=== PATIENT | male | born 1955 | race Asian ===

== ENCOUNTER 2019-11-27 04:57 | Inpatient (IN) | payer OTHER ==
[~2019-11-27] VITALS: Ht 172.7 cm; Wt 62.1 kg
[2019-11-27] VITALS (14 sets, daily range): BP systolic 106–160; BP diastolic 69–109
[2019-11-27 05:42] LABS: BASOPHIL % 0.3 % (0-2); PLATELET COUNT 207 x10^3mcL (130-400)
[2019-11-27 05:43] LABS: RED CELL DISTRIBUTION WIDTH 14.7 % (11.5-14.5)
[2019-11-27 06:01] LABS: CHLORIDE SERUM 101 mmol/L (98-107); CREATININE SERUM 1.5 mg/dL (0.7-1.3); GFR1 50 mL/min; GLUCOSE SERUM 362 mg/dL (74-106); POTASSIUM SERUM 3.9 mmol/L (3.5-5.1); SODIUM SERUM 139 mmol/L (136-145)
[2019-11-27 06:06] LABS: ALBUMIN 3.5 g/dL (3.4-5.0); ALKALINE PHOSPHATASE 135 U/L (46-116); ALT/SGPT 53 U/L (16-63); AST/SGOT 103 U/L (15-37); BILIRUBIN TOTAL 0.39 mg/dL (0.20-1.00); C REACTIVE PROTEIN 0.5 mg/dL (<=0.9); LACTIC DEHYDROGENASE (LDH) 403 U/L (100-190); TOTAL PROTEIN, SERUM 7.3 g/dL (6.4-8.2)
[2019-11-27 12:51] LABS: UA SPECIFIC GRAVITY >=1.030 (1.005-1.035); microscopic required? YES; urine erythrocyte 3+ (NEGATIVE)
[2019-11-28] VITALS (16 sets, daily range): BP systolic 112–139; BP diastolic 74–94
[2019-11-28 05:37] LABS: BASOPHIL % 0.1 % (0-2); PLATELET COUNT 172 x10^3mcL (130-400); RED CELL DISTRIBUTION WIDTH 14.6 % (11.5-14.5)
[2019-11-28 05:57] LABS: CALCIUM 8.8 mg/dL (8.5-10.1); CARBON DIOXIDE 31.6 mmol/L (21-32); CHLORIDE SERUM 102 mmol/L (98-107); CREATININE SERUM 1.2 mg/dL (0.7-1.3); GFR1 > 60 mL/min; GLUCOSE SERUM 134 mg/dL (74-106); MAGNESIUM 2.2 mg/dL (1.8-2.4); POTASSIUM SERUM 3.8 mmol/L (3.5-5.1); SODIUM SERUM 139 mmol/L (136-145)
[2019-11-29] VITALS (13 sets, daily range): BP systolic 125–149; BP diastolic 70–100
[2019-11-29 05:53] LABS: BILIRUBIN TOTAL 1.3 mg/dL (0.20-1.00); CALCIUM 8.7 mg/dL (8.5-10.1); CARBON DIOXIDE 30.2 mmol/L (21-32); CREATININE SERUM 1.4 mg/dL (0.7-1.3); POTASSIUM SERUM 3.4 mmol/L (3.5-5.1); TOTAL PROTEIN, SERUM 7.6 g/dL (6.4-8.2)
[2019-11-29 05:54] LABS: ALBUMIN 3.1 g/dL (3.4-5.0)
[2019-11-30] VITALS (14 sets, daily range): BP systolic 95–133; BP diastolic 64–81
[2019-11-30 06:21] LABS: PLATELET COUNT 164 x10^3mcL (130-400)
[2019-11-30 06:28] LABS: BASOPHIL % 0 % (0-2)
[2019-11-30 06:35] LABS: CALCIUM 8.7 mg/dL (8.5-10.1); CARBON DIOXIDE 25.2 mmol/L (21-32); CREATININE SERUM 2.1 mg/dL (0.7-1.3); POTASSIUM SERUM 3.3 mmol/L (3.5-5.1)
[2019-12-01] VITALS (16 sets, daily range): BP systolic 103–174; BP diastolic 62–106
[2019-12-01 08:07] LABS: PLATELET COUNT 158 x10^3mcL (130-400); RED CELL DISTRIBUTION WIDTH 14.5 % (11.5-14.5)
[2019-12-01 08:15] LABS: CALCIUM 8.5 mg/dL (8.5-10.1); CREATININE SERUM 1.5 mg/dL (0.7-1.3); MAGNESIUM 3.2 mg/dL (1.8-2.4); POTASSIUM SERUM 3.7 mmol/L (3.5-5.1)
[2019-12-01 09:55] LABS: BAND NEUTROPHIL 3 % (0-10); BASOPHIL 0 % (0-2); MONOCYTE 9 % (0-7); SEGMENTED NEUTROPHILS 82 % (37-75)
[2019-12-02] VITALS (17 sets, daily range): BP systolic 85–128; BP diastolic 50–78
[2019-12-02 06:18] LABS: BASOPHIL % 0.1 % (0-2); PLATELET COUNT 163 x10^3mcL (130-400); RED CELL DISTRIBUTION WIDTH 14.5 % (11.5-14.5)
[2019-12-02 06:39] LABS: BILIRUBIN DIRECT 1.42 mg/dL (0.0-0.2); BILIRUBIN TOTAL 1.9 mg/dL (0.20-1.00); CALCIUM 8.7 mg/dL (8.5-10.1); CARBON DIOXIDE 32.9 mmol/L (21-32); CREATININE SERUM 1.3 mg/dL (0.7-1.3); POTASSIUM SERUM 3.8 mmol/L (3.5-5.1); TOTAL PROTEIN, SERUM 6.7 g/dL (6.4-8.2)
[2019-12-03] VITALS (15 sets, daily range): BP systolic 103–162; BP diastolic 63–96
[2019-12-03 07:42] LABS: BASOPHIL % 0.2 % (0-2); PLATELET COUNT 178 x10^3mcL (130-400)
[2019-12-03 07:49] LABS: ALKALINE PHOSPHATASE 148 U/L (46-116); ALT/SGPT 40 U/L (16-63); AST/SGOT 34 U/L (15-37); BILIRUBIN TOTAL 1.1 mg/dL (0.20-1.00); CALCIUM 8.5 mg/dL (8.5-10.1); CHLORIDE SERUM 107 mmol/L (98-107); CREATININE SERUM 1.1 mg/dL (0.7-1.3); GFR1 > 60 mL/min; GLUCOSE SERUM 211 mg/dL (74-106); POTASSIUM SERUM 3.8 mmol/L (3.5-5.1); SODIUM SERUM 143 mmol/L (136-145); TOTAL PROTEIN, SERUM 6.3 g/dL (6.4-8.2)
[2019-12-03 07:50] LABS: ALBUMIN 1.8 g/dL (3.4-5.0)
[2019-12-04] VITALS (16 sets, daily range): BP systolic 93–179; BP diastolic 48–89
[2019-12-04 08:15] LABS: CALCIUM 8.5 mg/dL (8.5-10.1); CARBON DIOXIDE 25.7 mmol/L (21-32); CHLORIDE SERUM 109 mmol/L (98-107); CREATININE SERUM 1.1 mg/dL (0.7-1.3); GFR1 > 60 mL/min; GLUCOSE SERUM 248 mg/dL (74-106); SODIUM SERUM 144 mmol/L (136-145)
[2019-12-04 08:26] LABS: BASOPHIL % 0.2 % (0-2); RED CELL DISTRIBUTION WIDTH 14.4 % (11.5-14.5)
[2019-12-04 11:21] LABS: PLATELET COUNT 259 x10^3mcL (130-400)
[2019-12-05] VITALS (24 sets, daily range): BP systolic 91–139; BP diastolic 48–78; Ht 172.7 cm; Wt 62.1 kg
[2019-12-05 05:46] LABS: PLATELET COUNT 308 x10^3mcL (130-400); RED CELL DISTRIBUTION WIDTH 14.5 % (11.5-14.5)
[2019-12-05 06:19] LABS: ALKALINE PHOSPHATASE 172 U/L (46-116); ALT/SGPT 57 U/L (16-63); AST/SGOT 46 U/L (15-37); BAND NEUTROPHIL 5 % (0-10); BILIRUBIN TOTAL 0.77 mg/dL (0.20-1.00); CALCIUM 8.3 mg/dL (8.5-10.1); CHLORIDE SERUM 110 mmol/L (98-107); CREATININE SERUM 1.2 mg/dL (0.7-1.3); GFR1 > 60 mL/min; GLUCOSE SERUM 243 mg/dL (74-106); MONOCYTE 9 % (0-7); SEGMENTED NEUTROPHILS 72 % (37-75); SODIUM SERUM 146 mmol/L (136-145); TOTAL PROTEIN, SERUM 6.5 g/dL (6.4-8.2)
[2019-12-05 06:20] LABS: ALBUMIN 1.9 g/dL (3.4-5.0); rbc morphology (normal/abnorm) NORMAL (NORMAL)
[2019-12-06] VITALS (14 sets, daily range): BP systolic 96–143; BP diastolic 51–77
[2019-12-06 05:27] LABS: BASOPHIL % 0.3 % (0-2); PLATELET COUNT 365 x10^3mcL (130-400); RED CELL DISTRIBUTION WIDTH 14.2 % (11.5-14.5)
[2019-12-06 07:10] LABS: ALKALINE PHOSPHATASE 186 U/L (46-116); ALT/SGPT 75 U/L (16-63); AST/SGOT 48 U/L (15-37); BILIRUBIN TOTAL 0.74 mg/dL (0.20-1.00); CALCIUM 8.1 mg/dL (8.5-10.1); CARBON DIOXIDE 28.8 mmol/L (21-32); CHLORIDE SERUM 112 mmol/L (98-107); CREATININE SERUM 1.2 mg/dL (0.7-1.3); GFR1 > 60 mL/min; GLUCOSE SERUM 199 mg/dL (74-106); POTASSIUM SERUM 4.1 mmol/L (3.5-5.1); SODIUM SERUM 147 mmol/L (136-145); TOTAL PROTEIN, SERUM 6.3 g/dL (6.4-8.2)
[2019-12-06 07:31] LABS: ALBUMIN 1.8 g/dL (3.4-5.0)
[2019-12-07] VITALS: BP 141/83
[2019-12-07 04:12] VITALS: BP 119/65
[2019-12-07 09:10] VITALS: BP 135/72
[2019-12-07 09:16] LABS: RED CELL DISTRIBUTION WIDTH 14.4 % (11.5-14.5)
[2019-12-07 09:17] LABS: PLATELET COUNT 499 x10^3mcL (130-400)
[2019-12-07 09:22] LABS: CALCIUM 8.4 mg/dL (8.5-10.1); CARBON DIOXIDE 27.3 mmol/L (21-32); CHLORIDE SERUM 112 mmol/L (98-107); GFR1 > 60 mL/min; GLUCOSE SERUM 133 mg/dL (74-106); POTASSIUM SERUM 3.8 mmol/L (3.5-5.1); SODIUM SERUM 147 mmol/L (136-145)
[2019-12-07 10:51] LABS: BAND NEUTROPHIL 1 % (0-10); MONOCYTE 4 % (0-7); SEGMENTED NEUTROPHILS 91 % (37-75); rbc morphology (normal/abnorm) NORMAL (NORMAL)
[2019-12-07 12:00] VITALS: BP 147/86
[2019-12-07 16:00] VITALS: BP 149/75
[2019-12-07 20:00] VITALS: BP 144/82
[2019-12-08 07:30] VITALS: BP 119/83
[2019-12-08 09:30] LABS: PLATELET COUNT 601 x10^3mcL (130-400); RED CELL DISTRIBUTION WIDTH 14.2 % (11.5-14.5)
[2019-12-08 09:33] LABS: ALKALINE PHOSPHATASE 179 U/L (46-116); ALT/SGPT 99 U/L (16-63); AST/SGOT 89 U/L (15-37); BILIRUBIN TOTAL 1.19 mg/dL (0.20-1.00); CALCIUM 8.2 mg/dL (8.5-10.1); CARBON DIOXIDE 10.7 mmol/L (21-32); CHLORIDE SERUM 111 mmol/L (98-107); CREATININE SERUM 1.2 mg/dL (0.7-1.3); GFR1 > 60 mL/min; GLUCOSE SERUM 150 mg/dL (74-106); POTASSIUM SERUM 3.8 mmol/L (3.5-5.1); SODIUM SERUM 145 mmol/L (136-145); TOTAL PROTEIN, SERUM 7.2 g/dL (6.4-8.2)
[2019-12-08 09:34] LABS: ALBUMIN 2.3 g/dL (3.4-5.0)
[2019-12-08 10:53] LABS: SEGMENTED NEUTROPHILS 82 % (37-75)
[2019-12-08 10:54] LABS: BAND NEUTROPHIL 2 % (0-10); MONOCYTE 5 % (0-7); rbc morphology (normal/abnorm) NORMAL (NORMAL)
[2019-12-08 12:33] VITALS: BP 148/87
[2019-12-08 16:40] VITALS: BP 111/78
[2019-12-08 20:00] VITALS: BP 114/72
[2019-12-08 23:32] VITALS: BP 150/74
[2019-12-09] VITALS (13 sets, daily range): BP systolic 122–148; BP diastolic 59–88
[2019-12-09 09:17] LABS: PLATELET COUNT 619 x10^3mcL (130-400); RED CELL DISTRIBUTION WIDTH 14.5 % (11.5-14.5)
[2019-12-09 09:46] LABS: ALKALINE PHOSPHATASE 154 U/L (46-116); ALT/SGPT 107 U/L (16-63); AST/SGOT 82 U/L (15-37); BILIRUBIN TOTAL 0.85 mg/dL (0.20-1.00); CALCIUM 8.3 mg/dL (8.5-10.1); CARBON DIOXIDE 23.4 mmol/L (21-32); CHLORIDE SERUM 114 mmol/L (98-107); CREATININE SERUM 1.2 mg/dL (0.7-1.3); GFR1 > 60 mL/min; GLUCOSE SERUM 146 mg/dL (74-106); POTASSIUM SERUM 3.6 mmol/L (3.5-5.1); SODIUM SERUM 148 mmol/L (136-145)
[2019-12-09 09:47] LABS: ALBUMIN 2.4 g/dL (3.4-5.0)
[2019-12-09 11:05] LABS: BAND NEUTROPHIL 1 % (0-10); MONOCYTE 4 % (0-7); SEGMENTED NEUTROPHILS 88 % (37-75); rbc morphology (normal/abnorm) NORMAL (NORMAL)
== END 2019-12-10 00:03 | disposition left against medical advice (07) | DRG 130 ==
LOC: ED 04:57 → IC 06:51
PROVIDERS: Emergency Medicine; Internal Medicine; ADMIT Internal Medicine Pulmonary Disease; ATTEND Internal Medicine Pulmonary Disease
PROC: 5A1955Z Respiratory Ventilation, Greater than 96 Consecutive Hours (ICD-10-PCS; principal; 2019-11-27)
PROC: 0BH17EZ Insertion of Endotracheal Airway into Trachea, Via Natural or Artificial Opening (ICD-10-PCS; 2019-11-27)
DX: J96.01 Acute respiratory failure with hypoxia (principal); I50.43 Acute on chronic combined systolic (congestive) and diastolic (congestive) heart failure; J18.9 Pneumonia, unspecified organism; I11.0 Hypertensive heart disease with heart failure; Z20.828 Contact with and (suspected) exposure to other viral communicable diseases; R73.9 Hyperglycemia, unspecified; E83.51 Hypocalcemia; E78.00 Pure hypercholesterolemia, unspecified; I34.0 Nonrheumatic mitral (valve) insufficiency; F17.200 Nicotine dependence, unspecified, uncomplicated; I47.1 Supraventricular tachycardia; F41.9 Anxiety disorder, unspecified; Z53.29 Procedure and treatment not carried out because of patient's decision for other reasons
CPT/HCPCS: 36600; 82962; 83880; 87804; 92526-GN; 92610-GN; A4628; G0378; J0153; J0456; J0696; J1630; J1644; J1650; J1940; J1956; J2060; J2250; J2270; J2704; J3010; J3480; J3486; J3490; J7030; J7040; J7042; Q0092; U0003-CS

== ENCOUNTER 2020-01-12 10:04 | Emergency (ER) | payer OTHER, SELFPAY ==
[~2020-01-12] VITALS: Ht 170.2 cm; Wt 66.7 kg
[2020-01-12 10:06] VITALS: Ht 170.2 cm; Wt 66.7 kg
[2020-01-12 12:15] LABS: BASOPHIL % 0.4 % (0-2); PLATELET COUNT 393 x10^3mcL (130-400)
[2020-01-12 12:27] LABS: RED CELL DISTRIBUTION WIDTH 16.3 % (11.5-14.5)
[2020-01-12 13:45] VITALS: BP 113/73
[2020-01-12 13:46] LABS: CHLORIDE SERUM 105 mmol/L (98-107); POTASSIUM SERUM 4.1 mmol/L (3.5-5.1); SODIUM SERUM 139 mmol/L (136-145)
[2020-01-12 13:47] LABS: ALBUMIN 2.9 g/dL (3.4-5.0); CALCIUM 8.7 mg/dL (8.5-10.1); CARBON DIOXIDE 26.2 mmol/L (21-32); CREATININE SERUM 0.8 mg/dL (0.7-1.3); GFR1 > 60 mL/min; GLUCOSE SERUM 114 mg/dL (74-106); TOTAL PROTEIN, SERUM 7.2 g/dL (6.4-8.2)
[2020-01-12 13:48] LABS: ALKALINE PHOSPHATASE 87 U/L (46-116); ALT/SGPT 44 U/L (16-63); AST/SGOT 26 U/L (15-37); BILIRUBIN TOTAL 0.25 mg/dL (0.20-1.00); LIPASE 101 IU/L (73-393)
== END 2020-01-12 13:45 | disposition home or self-care (01) ==
LOC: ED 10:04
PROVIDERS: Emergency Medicine
DX: J81.1 Chronic pulmonary edema (principal); J90 Pleural effusion, not elsewhere classified; R06.01 Orthopnea; R06.02 Shortness of breath
CPT/HCPCS: 83880; Q0092

== ENCOUNTER 2020-05-22 22:53 | Emergency (ER) | payer OTHER ==
[~2020-05-22] VITALS: Ht 170.2 cm; Wt 66.2 kg
[2020-05-22 23:06] VITALS: BP 120/60; Ht 170.2 cm; Wt 66.2 kg
== END 2020-05-23 02:12 | disposition left against medical advice (07) ==
LOC: ED 22:53
DX: J90 Pleural effusion, not elsewhere classified (principal); F10.129 Alcohol abuse with intoxication, unspecified; Z42.8 Encounter for other plastic and reconstructive surgery following medical procedure or healed injury
CPT/HCPCS: 83880